=== PATIENT | male | born 1995 | race Caucasian/White ===

== ENCOUNTER 2017-04-18 20:22 | Emergency (ER) | payer OTHER ==
[~2017-04-18] VITALS: Ht 167.6 cm; Wt 53.9 kg
[2017-04-18 21:27] VITALS: BP 116/64
[2017-04-18 21:29] LABS: HEMATOCRIT 46.5 % (39.2-51.8); HEMOGLOBIN 15.4 g/dL (13.7-18.0); WHITE BLOOD COUNT 7.7 x10^3/uL (4.5-13.2)
[2017-04-18 21:40] LABS: BLOOD UREA NITROGEN 8 mg/dL (7-18)
== END 2017-04-18 22:53 | disposition home or self-care (01) ==
LOC: ED 22:40
DX: F10.10 Alcohol abuse, uncomplicated (principal); F14.10 Cocaine abuse, uncomplicated; F17.200 Nicotine dependence, unspecified, uncomplicated
CPT/HCPCS: 36415; 71020; 80048; 82040; 85025; 85379; 93005; 99285